=== PATIENT | male | born 1990 | race Caucasian/White ===

== ENCOUNTER 2017-09-06 08:01 | Emergency (ER) | payer MEDICAID, SELFPAY ==
[2017-09-06 08:13] VITALS: BP 102/64; PULSE 102; RESP 24; TEMP 36.8; O2SAT 98; BMI 25.7
--- NOTE | 2017-09-06 08:34 | XR_ITS ---
XR chest 2V HISTORY: ITS.REASON: cough ORDERING PHYSICIAN: Latha Gabriel MD PATIENT AGE: 27 years COMPARISON: None available FINDINGS: The cardiomediastinal silhouette and pulmonary vascularity are within normal limits. No lobar consolidation or collapse. There is a 3 mm nodular opacity in the right midlung laterally nonspecific and could be related to granuloma.. No acute bony abnormalities. IMPRESSION: No acute finding. 3 mm nodular density right midlung laterally nonspecific and could be related to a granuloma. Stability may be confirmed with follow-up
--- NOTE | 2017-09-06 08:36 | XR_ITS ---
XR acute abdomen series HISTORY: ITS.REASON: vomiting ORDERING PHYSICIAN: Latha Gabriel MD PATIENT AGE: 27 years COMPARISON: None FINDINGS: The bowel gas pattern is unremarkable. No obvious obstruction.. No abnormal calcifications are evident. No obvious renal or ureteral calculi.. No acute bony anomalies evident. IMPRESSION: Negative acute abdominal series, no acute finding
--- NOTE | 2017-09-06 08:38 | HMH.EDGENADL ---
ED Disposition Clinical Impression: Influenza A, Bronchitis, Gastroenteritis, Dehydration Disposition: Home, Self-Care Condition on Discharge: Fair Instructions: DI for Diarrhea and Traveler's Diarrhea -- Adult, DI for Diarrhea and Traveler's Diarrhea -- Child, DI for Nausea -- Child Additional Instructions: Stay on clear liquids for thenext 24 to 48hours and take tylenol or Ibuprofen for fever. Prescriptions: Azithromycin [Zithromax 500mg Tab Tri-Eliel] 500 mg PO DAILY #3 tab Oseltamivir Phosphate [Tamiflu 75mg Capsule] 75 mg PO BID 5 Days #10 capsule Time of Disposition: 13:53 - Critical Care Critical Care Time: No Attestation: On 09/06/17, the high probability of a clinically significant, sudden or life threatening deterioration of the following system(s) required my full and direct attention, intervention and personal management. The time I documented below is in addition to time spent performing reported procedures but includes the following listed in this critical care notation. Medical Decision Making - Medical Records Medical records reviewed: Yes: I reviewed the patient's medical records. Vital Signs: 09/06/17 08:13 09/06/17 09:33 09/06/17 11:40 Temperature 98.3 F 98.8 F Temperature Source Axillary Oral Pulse Rate [Left Brachial] 102 H 75 Respiratory Rate 24 22 16 Blood Pressure [Left Arm] 102/64 120/85 148/79 Blood Pressure Mean [Left Arm] 76 96 102 Blood Pressure Source [Left Arm] Automatic Cuff Automatic Cuff Automatic Cuff Blood Pressure Position [Left Arm] Sitting Supine Supine 02 Sat by Pulse Oximetry 98 96 99 Oxygen Delivery Method Room Air Room Air - Lab Data Lab results reviewed: Yes: I reviewed the patient's lab results. Lab Results 09/06/17 08:20: WBC 17.2 H, RBC 5.74, Hgb 16.4, Hct 47.6, MCV 83.0, MCH 28.6, MCHC 34.5, RDW 12.5, Plt Count 233, MPV 9.2, Neut % (Auto) 88.5 H, Lymph % (Auto) 5.2 L, [place] % (Auto) 5.9, Eos % (Auto) 0.2, Baso % (Auto) 0.2, Neut # (Auto) 15.2 H, Lymph # (Auto) 0.9, [place] # (Auto) 1.0, Eos # (Auto) 0.0, Baso # (Auto) 0.0, Total Counted 100, Neutrophils % (Manual) 93 H, Band Neutrophils % 2.0, Lymphocytes % (Manual) 2 L, Monocytes % (Manual) 3, Platelet Estimate Normal, RBC Morphology Normal 09/06/17 08:25: Influenza Type A Ag Positive A, Influenza Type B Ag Negative, Group A Strep Rapid Negative 09/06/17 10:57: Sodium 137, Potassium 3.6, Chloride 101, Carbon Dioxide 29, Anion Gap 10.6, BUN 21 H, Creatinine 1.08, Estimated Creat Clear 134, Estimated GFR > 60, Est GFR ( Amer) > 60, Glucose 149 H, Calcium 8.3 L, Total Bilirubin 0.5, AST 25, ALT 41, Alkaline Phosphatase 83, Total Protein 7.3, Albumin 3.7, Globulin 3.6 H, Albumin/Globulin Ratio 1.0 L, Amylase 79, Lipase 90 Result diagrams: 09/06/17 08:20 09/06/17 10:57 Orders (Tests/Meds): ED MEDICATIONS Generic Name Dose Route Start Last Admin Trade Name Freq PRN Reason Stop Dose Admin Benzocaine/Butamben/Tetracaine HCl 1 gm 09/06/17 08:51 09/06/17 11:05 Cetacaine [place] TP 10/06/17 08:50 1 gm NEEDED PRN Administration Sore Throat Oseltamivir Phosphate 75 mg 09/06/17 09:15 09/06/17 09:45 Tamiflu 75mg Capsule PO 10/06/17 09:14 75 mg BID ZENY Administration Sodium Chloride 10 ml 09/06/17 08:34 Saline Flush 10ml Syringe IV 10/06/17 08:33 NEEDED PRN Maintain IV Site Discontinued Medications Generic Name Dose Route Start Last Admin Trade Name Freq PRN Reason Stop Dose Admin Sodium Chloride 1,000 mls @ 999 mls/hr 09/06/17 08:45 09/06/17 10:41 Sod Chloride 0.9% 1000ml Bag IV 09/06/17 09:45 999 mls/hr .Q1H1M ZENY Administration Sodium Chloride 1,000 mls @ 999 mls/hr 09/06/17 08:45 09/06/17 09:00 Sod Chloride 0.9% 1000ml Bag IV 09/06/17 09:45 999 mls/hr .Q1H1M ZENY Administration Sodium Chloride 1,000 mls @ 999 mls/hr 09/06/17 12:45 Sod Chloride 0.9% 1000ml Bag IV 09/06/17 13:45 .Q1H1M ZENY Ondansetron HCl 4
--- NOTE | 2017-09-06 08:41 | ED_ITS ---
ED Disposition Clinical Impression: Influenza A, Bronchitis, Gastroenteritis, Dehydration Disposition: Home, Self-Care Condition on Discharge: Fair Instructions: DI for Diarrhea and Traveler's Diarrhea -- Adult, DI for Diarrhea and Traveler's Diarrhea -- Child, DI for Nausea -- Child Additional Instructions: Stay on clear liquids for thenext 24 to 48hours and take tylenol or Ibuprofen for fever. Prescriptions: Azithromycin [Zithromax 500mg Tab Tri-Eliel] 500 mg PO DAILY #3 tab Oseltamivir Phosphate [Tamiflu 75mg Capsule] 75 mg PO BID 5 Days #10 capsule Time of Disposition: 13:53 - Critical Care Critical Care Time: No Attestation: On 09/06/17, the high probability of a clinically significant, sudden or life threatening deterioration of the following system(s) required my full and direct attention, intervention and personal management. The time I documented below is in addition to time spent performing reported procedures but includes the following listed in this critical care notation. Medical Decision Making - Medical Records Medical records reviewed: Yes: I reviewed the patient's medical records. Vital Signs: 09/06/17 08:13 09/06/17 09:33 09/06/17 11:40 Temperature 98.3 F 98.8 F Temperature Source Axillary Oral Pulse Rate [Left Brachial] 102 H 75 Respiratory Rate 24 22 16 Blood Pressure [Left Arm] 102/64 120/85 148/79 Blood Pressure Mean [Left Arm] 76 96 102 Blood Pressure Source [Left Arm] Automatic Cuff Automatic Cuff Automatic Cuff Blood Pressure Position [Left Arm] Sitting Supine Supine 02 Sat by Pulse Oximetry 98 96 99 Oxygen Delivery Method Room Air Room Air - Lab Data Lab results reviewed: Yes: I reviewed the patient's lab results. Lab Results 09/06/17 08:20: WBC 17.2 H, RBC 5.74, Hgb 16.4, Hct 47.6, MCV 83.0, MCH 28.6, MCHC 34.5, RDW 12.5, Plt Count 233, MPV 9.2, Neut % (Auto) 88.5 H, Lymph % (Auto ) 5.2 L, [place] % (Auto) 5.9, Eos % (Auto) 0.2, Baso % (Auto) 0.2, Neut # (Auto) 15.2 H, Lymph # (Auto) 0.9, [place] # (Auto) 1.0, Eos # (Auto) 0.0, Baso # (Auto) 0.0, Total Counted 100, Neutrophils % (Manual) 93 H, Band Neutrophils % 2.0, Lymphocytes % (Manual) 2 L, Monocytes % (Manual) 3, Platelet Estimate Normal, RBC Morphology Normal 09/06/17 08:25: Influenza Type A Ag Positive A, Influenza Type B Ag Negative, Group A Strep Rapid Negative 09/06/17 10:57: Sodium 137, Potassium 3.6, Chloride 101, Carbon Dioxide 29, Anion Gap 10.6, BUN 21 H, Creatinine 1.08, Estimated Creat Clear 134, Estimated GFR > 60, Est GFR ( Amer) > 60, Glucose 149 H, Calcium 8.3 L, Total Bilirubin 0.5, AST 25, ALT 41, Alkaline Phosphatase 83, Total Protein 7.3, Albumin 3.7, Globulin 3.6 H, Albumin/Globulin Ratio 1.0 L, Amylase 79, Lipase 90 Result diagrams: 09/06/17 08:20 09/06/17 10:57 Orders (Tests/Meds): ED MEDICATIONS Generic Name Dose Route Start Last Admin Trade Name Freq PRN Reason Stop Dose Admin Benzocaine/Butamben/Tetracaine HCl 1 gm 09/06/17 08:51 09/06/17 11:05 Cetacaine [place] TP 10/06/17 08:50 1 gm NEEDED PRN Administration Sore Throat Oseltamivir Phosphate 75 mg 09/06/17 09:15 09/06/17 09:45 Tamiflu 75mg Capsule PO 10/06/17 09:14 75 mg BID ZENY Administration Sodium Chloride 10 ml 09/06/17 08:34 Saline Flush 10ml Syringe IV 10/06/17 08:33 NEEDED PRN Maintain IV Site Discontinued Medications
[2017-09-06 08:55] LABS: Strep Scrn Group A (Rapid) Negative (Negative)
[2017-09-06 09:33] VITALS: BP 120/85; RESP 22; O2SAT 96
[2017-09-06 11:13] LABS: Alanine Aminotransferase 41 U/L (12-78); Albumin Level 3.7 gm/dL (3.4-5.0); Alkaline Phosphatase 83 U/L (46-116); Amylase 79 U/L (25-125); Anion Gap 10.6 mEq/L (5-15); Aspartate Amino Transferase 25 U/L (15-37); Bilirubin,Total 0.5 mg/dL (0.2-1.0); Blood Urea Nitrogen 21 mg/dL (7-18); Calcium 8.3 mg/dL (8.5-10.1); Carbon Dioxide 29 mmol/L (21.0-32.0); Chloride 101 mmol/L (98-107); Creatinine Clearance Estimated 134 mL/min (0-300); Creatinine,Serum 1.08 mg/dL (0.70-1.30); Estimated Glomerular Filt Rate > 60 ml/min (>60); GFR (African American) > 60 ML/MIN (>60); Globulin 3.6 gm/dl (1.3-3.2); Glucose 149 mg/dL (74-106); Lipase 90 u/L (73-393); Potassium 3.6 mmoL/L (3.5-5.1); Total Protein,Serum 7.3 gm/dL (6.4-8.2)
[2017-09-06 11:16] LABS: Sodium 137 mmol/L (136-145)
[2017-09-06 11:40] VITALS: BP 148/79; PULSE 75; RESP 16; TEMP 37.1; O2SAT 99
[2017-09-06 11:54] LABS: Basophils % 0.2 % (0.1-2.0); Eosinophils % 0.2 % (0.1-12.0); Hematocrit 47.6 % (42.0-52.0); Hemoglobin 16.4 g/dL (14.1-18.0); Lymphocytes # 0.9 K/mm3 (0.7-4.5); Lymphocytes % 5.2 K/mm3 (10-50); Mean Corpuscular HGB Conc 34.5 g/dL (31.8-35.4); Mean Corpuscular Hemoglobin 28.6 pg (27.0-31.2); Mean Platelet Volume 9.2 fl (7.4-10.4); Monocytes % 5.9 % (1.7-9.3); Neutrophils # 15.2 K/mm3 (1.8-7.8); Neutrophils % 88.5 % (37.0-80.0); Platelet Count 233 K/mm3 (142-424); Red Blood Count 5.74 M/mm3 (4.60-6.20); Red Cell Distribution Width 12.5 % (11.5-17.5); White Blood Count 17.2 K/mm3 (4.8-10.8)
[2017-09-06 11:59] LABS: MANUAL DIFFERENTIAL MANUAL DIFFERENTIAL (MANUAL DIFF)
[2017-09-06 12:33] LABS: Lymphocytes % 2 % (10-50); Monocytes % 3 % (2-9); Neutrophils % 93 % (42-76); Platelet Estimate Normal; RBC Morphology Normal; Total Cells Counted 100
--- NOTE | 2017-09-06 12:40 | CT_ITS ---
CT abdomen pelvis wo con CLINICAL INDICATION: Abdominal pain with nausea and vomiting, flank pain ITS.REASON: abdominal pain ORDERING PHYSICIAN: Latha Gabriel MD PATIENT AGE: 27 years COMPARISON: None TECHNIQUE: Axial images obtained with sagittal and coronal reformats. PROCEDURE: Oral Contrast: None IV Contrast: None . FINDINGS: No acute finding in the lung bases. The liver, gallbladder, spleen, adrenal glands, and pancreas are unremarkable. There are punctate right renal calculi measuring up to 3 mm in the lower pole. No obstructing renal or ureteral calculi. No hydronephrosis. Unremarkable appendix. No intestinal obstruction or free air. No evidence of diverticulitis. Diverticulosis versus nondistention [place] noted in the descending and sigmoid colon. There are few scattered small lymph nodes in the mesentery's nonspecific. No acute bony anomalies. IMPRESSION: No acute finding. Nonobstructing right nephrolithiasis
[2017-09-06 14:05] VITALS: BP 148/79; PULSE 74; RESP 20; TEMP 36.8; O2SAT 98
== END 2017-09-06 14:35 | disposition home or self-care (01) ==
PROVIDERS: Emergency Provider General Practice
DX: J10.1 Influenza due to other identified influenza virus with other respiratory manifestations (principal); J40 Bronchitis, not specified as acute or chronic; K52.9 Noninfective gastroenteritis and colitis, unspecified; E86.0 Dehydration
CPT/HCPCS: 71046; 74021; 74176; 80053; 82150; 83690; 85007; 85025; 87275; 87276; 87430; 96365; 96366; 96375; 99284; J2405

== ENCOUNTER 2017-11-20 19:01 | Emergency (ER) | payer MEDICAID, SELFPAY ==
[2017-11-20 19:07] VITALS: BP 165/118; PULSE 79; RESP 26; TEMP 36.6; O2SAT 96; BMI 25.7
--- NOTE | 2017-11-20 19:15 | CT_ITS ---
CT abdomen pelvis wo con CLINICAL INDICATION: ITS.REASON: SUDDEN ONSET RLQ PAIN AND VOMITING ORDERING PHYSICIAN: Cynthia Couch MD PATIENT AGE: 27 years COMPARISON: 09/06/2017 TECHNIQUE: Axial images obtained with sagittal and coronal reformats. All CT scans at the facility use one or more dose reduction, viz: automated exposure control; ma/kV adjustment per patient size (including targeted exams where dose is matched to indication; i.e. head); or iterative reconstruction technique. PROCEDURE: Oral Contrast: None IV Contrast: None . FINDINGS: Lung bases are clear. The liver, spleen, adrenal glands, pancreas, and gallbladder have an unremarkable unenhanced CT appearance. Scattered small lymph nodes are present in the retroperitoneum. There is mild right hydronephrosis and hydroureter secondary to a 3 mm obstructing stone in the mid right ureter. Nonobstructing stone is present in the mid aspect of the right kidney a 3 mm. No obvious stone within urinary bladder. Unremarkable appendix. No intestinal structure free air. There are scattered small lymph nodes in the mesentery's. There is a trace amount of free fluid in the pelvis There is degenerative disc disease with disc osteophyte complex slightly eccentric to the left at L5-S1 causing canal stenosis with bilateral lateral recess and foraminal narrowing. IMPRESSION: 1. 3 mm obstructing right mid ureteral calculus with hydronephrosis and hydroureter with right nephrolithiasis. 2. Disc osteophyte complex eccentric to the left at L5-S1 with canal stenosis 3. Trace amount of free fluid in the pelvis
[2017-11-20 19:34] LABS: Basophils % 0.4 % (0.1-2.0); Eosinophils # 0.3 K/mm3 (0.0-0.4); Eosinophils % 3.2 % (0.1-12.0); Hematocrit 44.1 % (42.0-52.0); Hemoglobin 14.7 g/dL (14.1-18.0); Lymphocytes # 4.1 K/mm3 (0.7-4.5); Lymphocytes % 44.6 K/mm3 (10-50); Mean Corpuscular HGB Conc 33.3 g/dL (31.8-35.4); Mean Corpuscular Hemoglobin 29.4 pg (27.0-31.2); Mean Corpuscular Volume 88.3 fl (80-94); Mean Platelet Volume 7.1 fl (7.4-10.4); Monocytes # 0.4 K/mm3 (0.1-1.0); Monocytes % 4.4 % (1.7-9.3); Neutrophils # 4.4 K/mm3 (1.8-7.8); Neutrophils % 47.4 % (37.0-80.0); Platelet Count 298 K/mm3 (142-424); Red Cell Distribution Width 12.7 % (11.5-17.5); White Blood Count 9.2 K/mm3 (4.8-10.8)
[2017-11-20 19:41] VITALS: BP 131/69; PULSE 72; RESP 22; O2SAT 94
[2017-11-20 19:48] LABS: Alanine Aminotransferase 33 U/L (12-78); Albumin Level 4.2 gm/dL (3.4-5.0); Albumin/Globulin Ratio 1.1 (1.1-1.8); Alkaline Phosphatase 113 U/L (46-116); Amylase 61 U/L (25-125); Anion Gap 11.5 mEq/L (5-15); Aspartate Amino Transferase 28 U/L (15-37); Bilirubin,Total 0.3 mg/dL (0.2-1.0); Blood Urea Nitrogen 10 mg/dL (7-18); Calcium 9.3 mg/dL (8.5-10.1); Carbon Dioxide 29 mmol/L (21.0-32.0); Chloride 104 mmol/L (98-107); Creatinine Clearance Estimated 159 mL/min (0-300); Creatinine,Serum 0.91 mg/dL (0.70-1.30); Estimated Glomerular Filt Rate 102 ml/min (>60); GFR (African American) 123 ML/MIN (>60); Globulin 3.8 gm/dl (1.3-3.2); Glucose 141 mg/dL (74-106); Lipase 81 u/L (73-393); Potassium 3.5 mmoL/L (3.5-5.1); Sodium 141 mmol/L (136-145)
--- NOTE | 2017-11-20 20:00 | HMH.EDNVD ---
ED Disposition Clinical Impression: Calculus of kidney Disposition: Home, Self-Care Condition on Discharge: Good Instructions: DI for Kidney Stones Additional Instructions: see pcp for follow up Prescriptions: Tamsulosin HCl [Flomax 0.4mg capsule] 0.4 mg PO DAILY #10 cap.er.24h - Critical Care Critical Care Time: No Attestation: On 11/20/17, the high probability of a clinically significant, sudden or life threatening deterioration of the following system(s) required my full and direct attention, intervention and personal management. The time I documented below is in addition to time spent performing reported procedures but includes the following listed in this critical care notation. Medical Decision Making - Medical Records Medical records reviewed: Yes: I reviewed the patient's medical records. - Jose Inquiry Pt receiving controlled substance: No Vital Signs: 11/20/17 19:07 11/20/17 19:41 Temperature 97.8 F Temperature Source Oral Pulse Rate [Left Brachial] 79 72 Respiratory Rate 26 H 22 Blood Pressure [Left Arm] 165/118 131/69 Blood Pressure Mean [Left Arm] 133 89 Blood Pressure Source [Left Arm] Automatic Cuff Automatic Cuff Blood Pressure Position [Left Arm] Supine Right Lateral 02 Sat by Pulse Oximetry 96 94 L Oxygen Delivery Method Room Air Room Air - Lab Data Lab results reviewed: Yes: I reviewed the patient's lab results. Lab Results 11/20/17 19:10: WBC 9.2, RBC 5.00, Hgb 14.7, Hct 44.1, MCV 88.3, MCH 29.4, MCHC 33.3, RDW 12.7, Plt Count 298, MPV 7.1 L, Neut % (Auto) 47.4, Lymph % (Auto) 44.6, [place] % (Auto) 4.4, Eos % (Auto) 3.2, Baso % (Auto) 0.4, Neut # (Auto) 4.4, Lymph # (Auto) 4.1, [place] # (Auto) 0.4, Eos # (Auto) 0.3, Baso # (Auto) 0.0 Result diagrams: 11/20/17 19:10 Orders (Tests/Meds): ED MEDICATIONS Generic Name Dose Route Start Last Admin Trade Name Freq PRN Reason Stop Dose Admin Sodium Chloride 1,000 mls @ 999 mls/hr 11/20/17 19:15 11/20/17 19:58 Sod Chlor 0.9% 1000ml Bag IV 11/20/17 20:15 999 mls/hr .Q1H1M ZENY Administration Discontinued Medications Generic Name Dose Route Start Last Admin Trade Name [place] PRN Reason Stop Dose Admin Ketorolac Tromethamine 15 mg 11/20/17 19:15 11/20/17 19:58 Toradol 30mg/Ml Vial IV 11/20/17 19:16 15 mg ONCE ONE Administration Morphine Sulfate 4 mg 11/20/17 19:57 11/20/17 19:20 Morphine 4mg/Ml Syringe IV 11/20/17 19:58 4 mg ONCE ONE Administration Ondansetron HCl 4 mg 11/20/17 19:15 11/20/17 19:58 Zofran 4mg/2ml Vial IV 11/20/17 19:16 4 mg ONCE ONE Administration ORDERS Category Date Time Status CT abdomen pelvis wo con Stat Cat Scan 11/20/17 19:15 Taken Amylase Stat Lab 11/20/17 19:10 Received Comprehensive Metabolic Panel Stat Lab 11/20/17 19:10 Received Lipase Stat Lab 11/20/17 19:10 Received - CT Data CT Scan: Abdomen, Pelvis Time Received: 20:[address] Reviewed: Yes: I have viewed the radiologist's interpretation Preliminary Findings: Abnormal Nausea/Vomiting/Diarrhea HPI - General Chief complaint: Abdominal Pain Stated complaint: R side pain Time Seen by Provider: 11/20/17 20:00 Mode of Arrival: Wheelchair Source of Information: Patient, Relative, Medical Record Limitations: No Limitations Description of Symptoms (Recalled from ER Triage Doc. by RN): Pt c/o sudden onset sever RLQ pain inducing vomiting. Pt denies any diarrhea or pain in any other areas or difficulty urinating - History of Present Illness HPI Narrative: pt with acute onset of rt flank pain with vomiting - MD complaint: nausea, vomiting Onset (ago): day(s) Associated Abdominal Pain: Yes Severity: moderate Consistency: intermittent - Related Data Previous Rx's Medication Instructions Recorded Azithromycin [Zithromax 500mg Tab 500 mg PO DAILY #3 tab 09/06/17 Tri-Eliel] Oseltamivir Phosphate [Tamiflu 75 mg PO BID 5 Days #10 cap 09/06/17 75mg Capsule] Ta
--- NOTE | 2017-11-20 20:11 | ED_ITS ---
ED Disposition Clinical Impression: Calculus of kidney Disposition: Home, Self-Care Condition on Discharge: Good Instructions: DI for Kidney Stones Additional Instructions: see pcp for follow up Prescriptions: Tamsulosin HCl [Flomax 0.4mg capsule] 0.4 mg PO DAILY #10 cap.er.24h - Critical Care Critical Care Time: No Attestation: On 11/20/17, the high probability of a clinically significant, sudden or life threatening deterioration of the following system(s) required my full and direct attention, intervention and personal management. The time I documented below is in addition to time spent performing reported procedures but includes the following listed in this critical care notation. Medical Decision Making - Medical Records Medical records reviewed: Yes: I reviewed the patient's medical records. - Jose Inquiry Pt receiving controlled substance: No Vital Signs: 11/20/17 19:07 11/20/17 19:41 Temperature 97.8 F Temperature Source Oral Pulse Rate [Left Brachial] 79 72 Respiratory Rate 26 H 22 Blood Pressure [Left Arm] 165/118 131/69 Blood Pressure Mean [Left Arm] 133 89 Blood Pressure Source [Left Arm] Automatic Cuff Automatic Cuff Blood Pressure Position [Left Arm] Supine Right Lateral 02 Sat by Pulse Oximetry 96 94 L Oxygen Delivery Method Room Air Room Air - Lab Data Lab results reviewed: Yes: I reviewed the patient's lab results. Lab Results 11/20/17 19:10: WBC 9.2, RBC 5.00, Hgb 14.7, Hct 44.1, MCV 88.3, MCH 29.4, MCHC 33.3, RDW 12.7, Plt Count 298, MPV 7.1 L, Neut % (Auto) 47.4, Lymph % (Auto) 44.6, [place] % (Auto) 4.4, Eos % (Auto) 3.2, Baso % (Auto) 0.4, Neut # (Auto) 4.4 , Lymph # (Auto) 4.1, [place] # (Auto) 0.4, Eos # (Auto) 0.3, Baso # (Auto) 0.0 Result diagrams: 11/20/17 19:10 Orders (Tests/Meds): ED MEDICATIONS Generic Name Dose Route Start Last Admin Trade Name Freq PRN Reason Stop Dose Admin Sodium Chloride 1,000 mls @ 999 mls/hr 11/20/17 19:15 11/20/17 19:58 Sod Chlor 0.9% 1000ml Bag IV 11/20/17 20:15 999 mls/hr .Q1H1M ZENY Administration Discontinued Medications Generic Name Dose Route Start Last Admin Trade Name [place]aris PRN Reason Stop Dose Admin Ketorolac Tromethamine 15 mg 11/20/17 19:15 11/20/17 19:58 Toradol 30mg/Ml Vial IV 11/20/17 19:16 15 mg ONCE ONE Administration Morphine Sulfate 4 mg 11/20/17 19:57 11/20/17 19:20 Morphine 4mg/Ml Syringe IV 11/20/17 19:58 4 mg ONCE ONE Administration Ondansetron HCl 4 mg 11/20/17 19:15 11/20/17 19:58 Zofran 4mg/2ml Vial IV 11/20/17 19:16 4 mg ONCE ONE Administration ORDERS Category Date Time Status CT abdomen pelvis wo con Stat Cat Scan 11/20/17 19:15 Taken Amylase Stat Lab 11/20/17 19:10 Received Comprehensive Metabolic Panel Stat Lab 11/20/17 19:10 Received Lipase Stat Lab 11/20/17 19:10 Received - CT Data CT Scan: Abdomen, Pelvis Time Received: 20:[address] Reviewed: Yes: I have viewed the radiologist's interpretation Preliminary Findings: Abnormal Nausea/Vomiting/Diarrhea HPI - General Chief complaint: Abdominal Pain Stated complaint: R side pain Time Seen by Provider: 11/20/17 20:00 Mode of Arrival: Wheelchair Source of Information: [place]
[2017-11-20 20:55] VITALS: BP 128/70; PULSE 85; RESP 14; TEMP 37
== END 2017-11-20 20:55 | disposition home or self-care (01) ==
PROVIDERS: Emergency Provider Emergency Medicine
DX: N20.0 Calculus of kidney (principal)
CPT/HCPCS: 74176; 80053; 82150; 83690; 85025; 96365; 96375; 99283; J0595; J2405

== ENCOUNTER 2017-11-24 09:51 | Emergency (ER) | payer MEDICAID, SELFPAY ==
--- NOTE | 2017-11-24 09:55 | CT_ITS ---
CT abdomen pelvis wo con CLINICAL INDICATION: Right flank pain, history of right-sided ureteral stone. ITS.REASON: rigth flank pain ORDERING PHYSICIAN: Michael Waters MD PATIENT AGE: 27 years COMPARISON: 11/20/2017 TECHNIQUE: Axial images obtained with sagittal and coronal reformats. All CT scans at the facility use one or more dose reduction, viz: automated exposure control; ma/kV adjustment per patient size (including targeted exams where dose is matched to indication; i.e. head); or iterative reconstruction technique. PROCEDURE: Oral Contrast: None IV Contrast: None . FINDINGS: Lung bases are clear. The liver, gallbladder, pancreas, adrenal glands, and spleen have an unremarkable unenhanced CT appearance. There is right hydronephrosis and hydroureter. Previously the right ureteral stone was at the L4 level. The stone has descended to the distal ureter at the ureterovesical junction measuring 2 to 3 mm. There is a 2 mm punctate stone in the mid aspect of the right kidney. Scattered small mesenteric lymph nodes are present. Unremarkable appendix. No evidence of diverticulitis. There is a small amount fluid in the rectovesical pouch. IMPRESSION: 1. Previously described right mid ureteral stone has descended to the level of the ureterovesical junction. There remains mild right hydroureteronephrosis. 2. Punctate right renal calculus. 3. Small amount of fluid within the rectovesical pouch
[2017-11-24 10:09] VITALS: RESP 26; O2SAT 100; BMI 23.0
[2017-11-24 10:15] LABS: Basophils % 0.3 % (0.1-2.0); Eosinophils # 0.2 K/mm3 (0.0-0.4); Eosinophils % 1.9 % (0.1-12.0); Hemoglobin 14.5 g/dL (14.1-18.0); Lymphocytes # 2.4 K/mm3 (0.7-4.5); Lymphocytes % 21.2 K/mm3 (10-50); Mean Corpuscular HGB Conc 33.8 g/dL (31.8-35.4); Mean Corpuscular Hemoglobin 28.9 pg (27.0-31.2); Mean Corpuscular Volume 85.5 fl (80-94); Mean Platelet Volume 7.3 fl (7.4-10.4); Monocytes # 0.5 K/mm3 (0.1-1.0); Monocytes % 4.3 % (1.7-9.3); Neutrophils % 72.3 % (37.0-80.0); Platelet Count 293 K/mm3 (142-424); Red Blood Count 5.03 M/mm3 (4.60-6.20); Red Cell Distribution Width 12.4 % (11.5-17.5); White Blood Count 11.1 K/mm3 (4.8-10.8)
[2017-11-24 10:28] LABS: Alanine Aminotransferase 30 U/L (12-78); Albumin Level 4.4 gm/dL (3.4-5.0); Albumin/Globulin Ratio 1.1 (1.1-1.8); Alkaline Phosphatase 105 U/L (46-116); Amylase 67 U/L (25-125); Anion Gap 10.3 mEq/L (5-15); Aspartate Amino Transferase 29 U/L (15-37); Bilirubin,Total 0.3 mg/dL (0.2-1.0); Blood Urea Nitrogen 14 mg/dL (7-18); Calcium 9.5 mg/dL (8.5-10.1); Carbon Dioxide 31 mmol/L (21.0-32.0); Chloride 104 mmol/L (98-107); Creatinine Clearance Estimated 118 mL/min (0-300); Creatinine,Serum 1.04 mg/dL (0.70-1.30); Estimated Glomerular Filt Rate 87 ml/min (>60); GFR (African American) 105 ML/MIN (>60); Globulin 3.9 gm/dl (1.3-3.2); Glucose 109 mg/dL (74-106); Lipase 78 u/L (73-393); Potassium 3.3 mmoL/L (3.5-5.1); Sodium 142 mmol/L (136-145); Total Protein,Serum 8.3 gm/dL (6.4-8.2)
--- NOTE | 2017-11-24 13:13 | HMH.EDGENADL ---
ED Disposition Clinical Impression: Ureterolithiasis Disposition: Home, Self-Care Condition on Discharge: Good Instructions: DI for Kidney Stones Additional Instructions: Please drink plenty of fluids, today the pain medications as directed, follow-up with Dr. Mckinley tomorrow at 9 AM, as scheduled from the emergency room. Prescriptions: Oxycodone HCl/Acetaminophen [Percocet 10-325 mg Tab] 1 tab PO QIDP PRN #8 tab PRN Reason: Moderate Pain Referrals: Nikhil Mckinley MD [Staff Physician] - Time of Disposition: 13:19 - Critical Care Critical Care Time: No Attestation: On 11/24/17, the high probability of a clinically significant, sudden or life threatening deterioration of the following system(s) required my full and direct attention, intervention and personal management. The time I documented below is in addition to time spent performing reported procedures but includes the following listed in this critical care notation. Medical Decision Making - Medical Records Medical records reviewed: Yes: I reviewed the patient's medical records. - Jose Inquiry Pt receiving controlled substance: Yes Jose was queried for this patient: No Reason not queried -: Hospital network issues Risks and benefits of using a controlled substance: were discussed with pt by me Vital Signs: 11/24/17 10:09 Respiratory Rate 26 H 02 Sat by Pulse Oximetry 100 Oxygen Delivery Method Room Air - Lab Data Lab Results 11/24/17 10:05: WBC 11.1 H, RBC 5.03, Hgb 14.5, Hct 43.0, MCV 85.5, MCH 28.9, MCHC 33.8, RDW 12.4, Plt Count 293, MPV 7.3 L, Neut % (Auto) 72.3, Lymph % (Auto) 21.2, [place] % (Auto) 4.3, Eos % (Auto) 1.9, Baso % (Auto) 0.3, Neut # (Auto) 8.0 H, Lymph # (Auto) 2.4, [place] # (Auto) 0.5, Eos # (Auto) 0.2, Baso # (Auto) 0.0 11/24/17 10:05: Sodium 142, Potassium 3.3 L, Chloride 104, Carbon Dioxide 31, Anion Gap 10.3, BUN 14, Creatinine 1.04, Estimated Creat Clear 118, Estimated GFR 87, Est GFR ( Amer) 105, Glucose 109 H, Calcium 9.5, Total Bilirubin 0.3, AST 29, ALT 30, Alkaline Phosphatase 105, Total Protein 8.3 H, Albumin 4.4, Globulin 3.9 H, Albumin/Globulin Ratio 1.1, Amylase 67, Lipase 78 Result diagrams: 11/24/17 10:05 11/24/17 10:05 Orders (Tests/Meds): ED MEDICATIONS Generic Name Dose Route Start Last Admin Trade Name Freq PRN Reason Stop Dose Admin Sodium Chloride 1,000 mls @ 999 mls/hr 11/24/17 12:30 11/24/17 12:41 Sod Chlor 0.9% 1000ml Bag IV 11/24/17 13:30 999 mls/hr .Q1H1M ZENY Administration Sodium Chloride 1,000 mls @ 999 mls/hr 11/24/17 13:15 Sod Chlor 0.9% 1000ml Bag IV 11/24/17 14:15 .Q1H1M ZENY Discontinued Medications Generic Name Dose Route Start Last Admin Trade Name Freq PRN Reason Stop Dose Admin Butorphanol Tartrate 1 mg 11/24/17 10:29 11/24/17 10:34 Stadol 1mg/1ml Vial IV 11/24/17 10:30 1 mg ONCE ONE Administration Butorphanol Tartrate 0.5 mg 11/24/17 13:11 Stadol 1mg/1ml Vial IV 11/24/17 13:12 ONCE ONE Sodium Chloride 1,000 mls @ 999 mls/hr 11/24/17 10:00 11/24/17 10:08 Sod Chlor 0.9% 1000ml Bag IV 11/24/17 11:00 999 mls/hr .Q1H1M ZENY Administration Sodium Chloride 1,000 mls @ 999 mls/hr 11/24/17 10:00 11/24/17 10:21 Sod Chlor 0.9% 1000ml Bag IV 11/24/17 11:00 Not Given .Q1H1M ZENY Ketorolac Tromethamine 30 mg 11/24/17 10:25 11/24/17 10:26 Toradol 30mg/Ml Vial IV 11/24/17 10:26 30 mg ONCE ONE Administration Morphine Sulfate 8 mg 11/24/17 09:54 11/24/17 10:08 Morphine 8mg/Ml Syringe IV 11/24/17 09:55 8 mg ONCE ONE Administration Ondansetron HCl 4 mg 11/24/17 09:54 11/24/17 10:08 Zofran 4mg/2ml Vial IV 11/24/17 09:55 4 mg ONCE ONE Administration Ondansetron HCl 4 mg 11/24/17 13:12 Zofran 4mg/2ml Vial IV 11/24/17 13:13 ONCE ONE Promethazine HCl 12.5 mg 11/24/17 10:29 11/24/17 10:34 Phenergan 25mg/Ml 1ml Vial IV 11/24/17 10:30 12.5 mg
--- NOTE | 2017-11-24 13:16 | ED_ITS ---
ED Disposition Clinical Impression: Ureterolithiasis Disposition: Home, Self-Care Condition on Discharge: Good Instructions: DI for Kidney Stones Additional Instructions: Please drink plenty of fluids, today the pain medications as directed, follow- up with Dr. Mckinley tomorrow at 9 AM, as scheduled from the emergency room. Prescriptions: Oxycodone HCl/Acetaminophen [Percocet 10-325 mg Tab] 1 tab PO QIDP PRN #8 tab PRN Reason: Moderate Pain Referrals: Nikhil Mckinley MD [Staff Physician] - Time of Disposition: 13:19 - Critical Care Critical Care Time: No Attestation: On 11/24/17, the high probability of a clinically significant, sudden or life threatening deterioration of the following system(s) required my full and direct attention, intervention and personal management. The time I documented below is in addition to time spent performing reported procedures but includes the following listed in this critical care notation. Medical Decision Making - Medical Records Medical records reviewed: Yes: I reviewed the patient's medical records. - Jose Inquiry Pt receiving controlled substance: Yes Jose was queried for this patient: No Reason not queried -: Hospital network issues Risks and benefits of using a controlled substance: were discussed with pt by me Vital Signs: 11/24/17 10:09 Respiratory Rate 26 H 02 Sat by Pulse Oximetry 100 Oxygen Delivery Method Room Air - Lab Data Lab Results 11/24/17 10:05: WBC 11.1 H, RBC 5.03, Hgb 14.5, Hct 43.0, MCV 85.5, MCH 28.9, MCHC 33.8, RDW 12.4, Plt Count 293, MPV 7.3 L, Neut % (Auto) 72.3, Lymph % (Auto ) 21.2, [place] % (Auto) 4.3, Eos % (Auto) 1.9, Baso % (Auto) 0.3, Neut # (Auto) 8.0 H, Lymph # (Auto) 2.4, [place] # (Auto) 0.5, Eos # (Auto) 0.2, Baso # (Auto) 0.0 11/24/17 10:05: Sodium 142, Potassium 3.3 L, Chloride 104, Carbon Dioxide 31, Anion Gap 10.3, BUN 14, Creatinine 1.04, Estimated Creat Clear 118, Estimated GFR 87, Est GFR ( Amer) 105, Glucose 109 H, Calcium 9.5, Total Bilirubin 0.3, AST 29, ALT 30, Alkaline Phosphatase 105, Total Protein 8.3 H, Albumin 4.4 , Globulin 3.9 H, Albumin/Globulin Ratio 1.1, Amylase 67, Lipase 78 Result diagrams: 11/24/17 10:05 11/24/17 10:05 Orders (Tests/Meds): ED MEDICATIONS Generic Name Dose Route Start Last Admin Trade Name Freq PRN Reason Stop Dose Admin Sodium Chloride 1,000 mls @ 999 mls/hr 11/24/17 12:30 11/24/17 12:41 Sod Chlor 0.9% 1000ml Bag IV 11/24/17 13:30 999 mls/hr .Q1H1M ZENY Administration Sodium Chloride 1,000 mls @ 999 mls/hr 11/24/17 13:15 Sod Chlor 0.9% 1000ml Bag IV 11/24/17 14:15 .Q1H1M ZENY Discontinued Medications Generic Name Dose Route Start Last Admin Trade Name Freq PRN Reason Stop Dose Admin Butorphanol Tartrate 1 mg 11/24/17 10:29 11/24/17 10:34 Stadol 1mg/1ml Vial IV 11/24/17 10:30 1 mg ONCE ONE Administration Butorphanol Tartrate 0.5 mg 11/24/17 13:11 Stadol 1mg/1ml Vial IV 11/24/17 13:12 ONCE ONE Sodium Chloride 1,000 mls @ 999 mls/hr 11/24/17 10:00 11/24/17 10:08 Sod Chlor 0.9% 1000ml Bag IV 11/24/17 11:00 999 mls/hr .Q1H1M ZENY Administration Sodium Chloride 1,000 mls @ 999 mls/hr 11/24/17 10:00 11/24/17 10:21 Sod Chlor 0.9% 1000ml Bag IV 11/24/17 11:00 Not Given .Q1H1M ZENY [place]
--- NOTE | 2017-11-24 13:29 | PC.NURSE ---
TORADOL #30 TABLETS GIVEN TID
[2017-11-24 13:31] VITALS: BP 125/70; PULSE 70; RESP 18; TEMP 36.7; O2SAT 98
--- NOTE | 2017-11-24 13:36 | PC.NURSE ---
Appt made with for 11/25/17 at 0900, discussed this with pt and family present.
== END 2017-11-24 13:30 | disposition home or self-care (01) ==
PROVIDERS: Emergency Provider Emergency Medicine
DX: N20.1 Calculus of ureter (principal); Z87.442 Personal history of urinary calculi
CPT/HCPCS: 74176; 80053; 82150; 83690; 85025; 96365; 96367; 96374; 96375; 96376; 99281; 99282; J0595; J2405

== ENCOUNTER 2022-12-07 23:04 | Emergency (ER) | payer MEDICAID, SELFPAY ==
[2022-12-07 23:25] VITALS: BP 143/87; PULSE 96; RESP 17; TEMP 37.1; O2SAT 98; BMI 31.4
[2022-12-07 23:44] LABS: Basophils # 0.1 K/mm3 (0-0.2); Basophils % 0.3 % (0.1-2.0); Eosinophils # 0.1 K/mm3 (0.0-0.4); Eosinophils % 0.6 % (0.1-12.0); Hematocrit 51.5 % (42.0-52.0); Hemoglobin 16.9 g/dL (14.1-18.0); Lymphocytes # 0.9 K/mm3 (0.7-4.5); Lymphocytes % 4.6 % (10-50); Mean Corpuscular HGB Conc 32.9 g/dL (31.8-35.4); Mean Corpuscular Hemoglobin 28.7 pg (27.0-31.2); Mean Corpuscular Volume 87.2 fl (80-94); Mean Platelet Volume 7.5 fl (7.4-10.4); Monocytes # 0.8 K/mm3 (0.1-1.0); Neutrophils # 17.6 K/mm3 (1.8-7.8); Neutrophils % 90.5 % (37.0-80.0); Platelet Count 231 K/mm3 (142-424); Red Blood Count 5.91 M/mm3 (4.60-6.20); White Blood Count 19.5 K/mm3 (4.8-10.8)
[2022-12-07 23:55] LABS: Coronavirus 19, PCR Not Detected (NotDetected); Influenza A, PCR Not Detected (NotDetected); Influenza B, PCR Not Detected (NotDetected)
[2022-12-07 23:55] LABS: MANUAL DIFFERENTIAL MANUAL DIFFERENTIAL (MANUAL DIFF)
[2022-12-08] VITALS (8 sets, daily range): BP systolic 113; BP diastolic 70; PULSE 69–96; RESP 16; TEMP 36.5; O2SAT 96–98
--- NOTE | 2022-12-08 | CT_ITS ---
PROCEDURE INFORMATION: Exam: CT Abdomen And Pelvis With Contrast Exam date and time: 12/08/2022 12:14 AM Age: 32 years old Clinical indication: Nausea and vomiting; Abdominal pain; Additional info: Abd cramp n/v/d TECHNIQUE: Imaging protocol: Computed tomography of the abdomen and pelvis with contrast. Total images: 328 Radiation optimization: All CT scans at this facility use at least one of these dose optimization techniques: automated exposure control; mA and/or kV adjustment per patient size (includes targeted exams where dose is matched to clinical indication); or iterative reconstruction. Contrast material: ISOVUE; Contrast volume: 75 ml; Contrast route: IV; REPORTING DATA: Count of CT and Cardiac NM exams in prior 12 months: This patient has received 0 known CTs and 0 known cardiac nuclear medicine studies in the 12 months prior to the current study. COMPARISON: [facility] CT abdomen pelvis wo con 11/24/2017 10:16 AM FINDINGS: Lungs: Lung bases are clear. Heart: Normal heart size. Liver: Normal. No mass. Gallbladder and bile ducts: Normal. No calcified stones. No ductal dilation. Pancreas: Normal. No ductal dilation. Spleen: Borderline splenomegaly at 13.5 cm. No splenic mass. Adrenal glands: Normal. No mass. Kidneys and ureters: No nephrolithiasis, hydronephrosis, or perinephric fluid. No discrete renal mass. No ureteral stones. Stomach and bowel: Partially collapsed stomach. Unremarkable duodenum. No ileus or bowel obstruction. Small bowel is within normal limits. Colon and rectum are within normal limits. Tiny focus of epiploic appendagitis in the mid descending colon, axial image 65, coronal image 31. Appendix: Normal appendix. Intraperitoneal space: Unremarkable. No free air. No significant fluid collection. Vasculature: Abdominal aorta is normal in caliber. Major abdominal vessels enhance appropriately. Pelvic phleboliths. Lymph nodes: Unremarkable. No enlarged lymph nodes. Urinary bladder: Collapsed bladder. No bladder stones. Reproductive: Nonenlarged prostate. Bones/joints: No acute osseous abnormality. There are few scattered punctate sclerotic bone islands. Mild degenerative changes lumbar spine greatest at L5-S1. Concentric disc bulge with annular calcification L5-S1. Soft tissues: Very tiny fat containing umbilical hernia. IMPRESSION: 1. Tiny focus of epiploic appendagitis adjacent to the mid descending colon. 2. Borderline splenomegaly at 13.5 cm. 3. Otherwise, no acute intra-abdominal or pelvic process. 4. Additional chronic and incidental findings.
[2022-12-08 00:02] LABS: Lipase 55 U/L (23-300)
[2022-12-08 00:03] LABS: Alanine Aminotransferase 47 U/L (12-78); Albumin Level 5.3 g/dl (3.5-5.0); Albumin/Globulin Ratio 1.4 (1.1-1.8); Alkaline Phosphatase 114 U/L (38-126); Amylase 129 U/L (30-110); Anion Gap 13.9 mEq/L (5-15); Aspartate Amino Transferase 36 U/L (17-59); Bilirubin,Total 0.9 mg/dl (0.2-1.3); Blood Urea Nitrogen 13 mg/dl (9-20); Calcium 9.4 mg/dl (8.4-10.2); Carbon Dioxide 25 mmol/L (22.0-30.0); Chloride 98 mmol/L (98-107); Creatinine Clearance Estimated 170 mL/min (50-200); Estimated Glomerular Filt Rate 88 ml/min (>60); GFR (African American) 106 ML/MIN (>60); Globulin 3.9 g/dL (1.3-3.2); Glucose 185 mg/dl (74-100); Potassium 3.9 mmoL/L (3.5-5.1); Sodium 133 mmol/L (136-145); Total Protein,Serum 9.2 g/dl (6.3-8.2)
[2022-12-08 00:18] LABS: Lymphocytes % 4 % (10-50); Monocytes % 4 % (2-9); Neutrophils % 92 % (42-76); Total Cells Counted 100
[2022-12-08 00:19] LABS: Platelet Estimate Normal; RBC Morphology Normal
--- NOTE | 2022-12-08 01:36 | [facility].EDNVD ---
Discharge Plan Disposition Patient Disposition: Home, Self-Care Prescriptions Prescriptions: New ondansetron HCl 4 mg Tablet 4 mg PO Q8H PRN (Reason: Nausea) Qty: 20 0RF Referrals Follow up/Referrals: Provider,Referral, MD [Primary Care Provider] - See instructions Clinical Impressions Clinical Impression: Gastroenteritis Instructions Patient Instructions: DI for Diarrhea and Traveler's Diarrhea -- Adult Discharge ED Provider: Dutch (ED)Brayden Nausea/Vomiting/Diarrhea HPI General Chief complaint: Nausea/Vomiting/Diarrhea Stated complaint: Vomiting,fever,body aches,chills,sweating Time Seen by Provider: 12/08/22 01:36 Mode of Arrival: Family Vehicle Source of Information: Patient and Medical Record Limitations: No Limitations Description of Symptoms (Recalled from ER Triage Doc. by RN): n/v/d x 48 hours. Patient reports nonstop vomiting, and repeated diarrhea for almost 2 days . Elaborated by stating I'm starting to not be able to walk straight . Last BM was 1 hour ago. Denies other medical history. Denies previous issues, denies contact with covid or flu. Not vaccinated for either. Afebrile. Presents diaphoretic, with chills. History of Present Illness HPI Narrative: achey and vomiting and occ diarrhea over the last 2 days -no fever or rash MD complaint: nausea and diarrhea Onset (ago): day(s) Associated Abdominal Pain: No Severity: moderate Consistency: intermittent Associated symptoms: denies other symptoms Related Data Previous Rx's Medication Instructions Recorded ondansetron HCl 4 mg tablet 4 mg PO Q8H PRN Nausea #20 tabs 12/08/22 Allergies Allergy/AdvReac Type Severity Reaction Status Date / Time No Known Allergies Allergy Verified 09/06/17 08:22 [facility] Disclaimer: The information contained in this section may have been updated after the patient was seen, as this information can be updated by other users. Social History Smoking Status: Never smoker alcohol intake: never current occupational status: employed Travel in the last 8 weeks: None ROS Obtained: Yes All systems reviewed & no additional complaints except as documented Physical Exam General General appearance: alert Head Head exam: normocephalic Eye Eye exam: Present PERRL and EOMI ENT ENT exam: Present mucous membranes moist Neck Neck exam: Present trachea midline Respiratory Respiratory exam: Present normal lung sounds bilaterally; Absent respiratory distress Cardiovascular Cardiovascular exam: Present regular rate Abdominal Exam Abdominal exam: Present soft; Absent tenderness, guarding or rebound Extremities Exam Extremities exam: Present full ROM Neurological Exam Neurological exam: Present alert and CN II-XII intact Psychiatric Psychiatric exam: Present normal affect Skin Skin exam: Absent rash Medical Decision Making Medical Records Medical records reviewed: Yes I reviewed the patient's medical records. Jose Inquiry Pt receiving controlled substance: No Vital Signs: 12/07/22 23:25 Temperature 98.7 F Temperature Source Oral Pulse Rate [Right Brachial] 96 H Respiratory Rate 17 Blood Pressure [Right Arm] 143/87 H Blood Pressure Mean [Right Arm] 105 Blood Pressure Source [Right Arm] Automatic Cuff Blood Pressure Position [Right Arm] Sitting 02 Sat by Pulse Oximetry 98 Oxygen Delivery Method Room Air Lab Data Lab results reviewed: Yes I reviewed the patient's lab results. Lab Results 12/07/22 23:26: SARS-CoV-2 (PCR) Not detected, Influenza A Untype (PCR) Not detected, Influenza Type B (PCR) Not detected 12/07/22 23:29: WBC 19.5 H, RBC 5.91, Hgb 16.9, Hct 51.5, MCV 87.2, MCH 28.7, MCHC 32.9, RDW 13.0, Plt Count 231, MPV 7.5, Neut % (Auto) 90.5 H, Lymph % (Auto) 4.6 L, [place] % (Auto) 4.0, Eos % (Auto) 0.6, Baso % (Auto) 0.3, Neut # (Auto) 17.6 H, Lymph # (Auto) 0.9, [place] # (Auto) 0.8, Eos # (Auto) 0.1, Baso # (Auto) 0.1, Total Counted 100, Neutrophils % (Manual) 92 H, Lymph
== END 2022-12-08 04:07 | disposition home or self-care (01) ==
PROVIDERS: Emergency Provider Emergency Medicine
DX: K52.9 Noninfective gastroenteritis and colitis, unspecified (principal)
CPT/HCPCS: 74177; 80053; 82150; 83690; 84145; 85007; 85025; 96360; 96361; 96374; 96375; 99284; 99285; C9803; J2405; Q9967; U0003; U0005